=== PATIENT | female | born 1970 | race Hispanic/Latino ===

== ENCOUNTER 2018-07-15 06:57 | Outpatient (CLI) | payer OTHER ==
--- NOTE | 2018-07-15 09:09 | ULT ---
SONOGRAM ABDOMEN COMPLETE: HISTORY: Abdominal pain. FINDINGS: Echogenic stones and sludge are present within the dependent portion of the gallbladder lumen. No ga llbladder wall thickening or pericholecystic fluid. The common duct is 0.6 cm. The liver very heter ogeneous and predominantly hyperechoic. No intrahepatic biliary dilatation. No free fluid. The spl een, kidneys, and visualized portions of the abdominal aorta, IVC, and pancreas are unremarkable. IMPRESSION: 1. Cholelithiasis. No evidence of acute biliary obstruction. 2. Hepatosteatosis. POS: [facility]
== END 2018-07-15 06:58 | disposition home or self-care (01) ==
LOC: SCSULT 06:57
PROVIDERS: ATTEND Nurse Practitioner Family
DX: R10.32 Left lower quadrant pain (principal); K80.20 Calculus of gallbladder without cholecystitis without obstruction; K76.0 Fatty (change of) liver, not elsewhere classified
CPT/HCPCS: 76700